=== PATIENT | male | born 1965 | race Caucasian/White ===

== ENCOUNTER 2017-10-28 18:01 | Emergency (ER) | payer BC, OTHER ==
[2017-10-28 18:13] VITALS: BP 125/91
[2017-10-28] MEDS ORDERED: Metoclopramide 10 MG/2 ML SDV IVPUSH ONE (18:24)
[2017-10-28] MEDS ORDERED: HYDROmorphone 1 MG/ML Syringe IVPUSH ONE (18:24)
--- NOTE | 2017-10-28 18:27 | EDM.PDOC ---
<ShahnazRomeo swartz Jermaine - Last Filed: 10/28/17 18:32> ED HPI GENERAL MEDICAL PROBLEM - General Chief Complaint: Abdominal Pain Stated Complaint: HERNIA Time Seen by Provider: 10/28/17 18:24 Source of Information: Reports: Patient, Family (daughter) History Limitations: Reports: No Limitations - History of Present Illness INITIAL COMMENTS - FREE TEXT/NARRATIVE: 52-year-old male presents to the ED with diffuse right skyla-abdominal pain. Patient has multiple abdominal wall hernias as previously identified on CT scan. States right-sided mid and lower abdominal pain started about noon today and has progressed in intensity. Pain is constant with a strong colicky component with an obvious mass involving the abdominal wall on the right side. Patient has been having intermittent process with hernias. He has high-risk surgery because he is on Plavix post 2 stents placed in his heart 6 weeks ago due to coronary disease and is on Plavix. He is and also a long-term insulin- dependent diabetic. Therefore extremely high risk for any major surgery. He states he is nauseated but has not yet vomited. Last meal was around 3:00 when he had an apple. He believes he is still passing some flatus per rectum. Also did move once today. No blood noted Onset: Today Onset Date: 10/28/17 Onset Time: 12:00 Duration: Hour(s): Location: Reports: Abdomen (Right mid and lower hemiabdomen.) Quality: Reports: Ache, Sharp, Stabbing Severity: Severe (Current pain is 8 out of 10.) Improves with: Reports: None Worsens with: Reports: Movement Context: Denies: Activity (In sitting.), Exercise, Lifting, Sick Contact, Trauma , Other Associated Symptoms: Reports: Malaise, Nausea/Vomiting. Denies: Chest Pain, Cough, cough w sputum, Diaphoresis, Fever/Chills, Headaches, Loss of Appetite, Rash, Seizure (Nausea without vomiting), Shortness of Breath, Syncope Treatments AGENCY SERVICE REPRESENTATIVE: Reports: Other (see below) (He took 2 Percocet tablets without any relief of the pain) Lower Abdomen Pain Score (Numeric/FACES): 6 - Related Data Allergies Allergy/AdvReac Type Severity Reaction Status Date / Time No Known Allergies Allergy Verified 09/12/17 23:03 CDT Home Meds: Home Meds Losartan [Cozaar] 25 mg PO BID 04/01/17 [History] Spironolactone [Aldactone] 25 mg PO BID 04/01/17 [History] Insulin Detemir [Levemir Flextouch] 30 units SUBCUT BEDTIME 05/22/17 [History] Carvedilol 12.5 mg PO BIDMEALS 08/17/17 [History] DULoxetine [Cymbalta] 30 mg PO DAILY 08/17/17 [History] Ranolazine [Ranexa] 500 mg PO BID 08/17/17 [History] Isosorbide Mononitrate [Imdur] 60 mg PO DAILY 09/03/17 [History] Nitroglycerin 0.4 mg SL Q5M PRN 09/03/17 [History] Aspirin [Ecotrin] 325 mg PO DAILY 09/09/17 [History] DULoxetine [Cymbalta] 60 mg PO BEDTIME 09/09/17 [History] Omeprazole 40 mg PO ACBREAKFAST 09/09/17 [History] Insulin Aspart [NovoLOG] See Protocol SUBCUT TIDMEALS #0 09/11/17 [Rx] oxyCODONE HCl/Acetaminophen [Percocet 10-325 mg Tablet] 1 each PO Q6HR #20 tablet 09/11/17 [Rx] Past Medical History - Past Health History Medical/Surgical History: Denies Medical/Surgical History HEENT History: Reports: None Cardiovascular History: Reports: Angina, CAD, High Cholesterol, Heart Failure, Hypertension, OR, Other (See Below), Pacemaker Other Cardiovascular History: Valve Problem Respiratory History: Reports: Asthma Other Respiratory History: recently diagnosed with nodules in lungs Gastrointestinal History: Reports: None Genitourinary History: Reports: Chronic Renal Insuffiency (Stage III to the patient's knowledge.) Musculoskeletal History: Reports: Back Pain, Chronic Neurological History: Reports: Neuropathy, Diabetic Other Neuro History: Intracranial hypertension Psychiatric History: Reports: Depression Endocrine/Metabolic History: Reports: Diabetes, Type I Hematologic History: Reports: None Immunologic History: Reports: None Oncologic (Cancer) History: Reports: None Dermatologic History: Reports: None - Infectious Disease History Infectious Disease History: Reports: Chicken Pox, None - Past Surgical History Head Surgeries/Procedures: Reports: None Social & Family History - Family History Family Medical History: Noncontributory - Tobacco Use Smoking Status *Q: Never Smoker Second Hand Smoke Exposure: No - Caffeine Use Caffeine Use: Reports: None - Alcohol Use Days Per Week of Alcohol Use: 0 - Recreational Drug Use Recreational Drug Use: No - Living Situation & Occupation Living situation: Reports: Occupation: Employed ED ROS GENERAL - Review of Systems Review Of Systems: See Below Constitutional: Reports: Malaise, Weakness, Fatigue, Decreased Appetite. Denies : Fever, Chills HEENT: Reports: Glasses Respiratory: Reports: No Symptoms Cardiovascular: Reports: Blood Pressure Problem, Other Endocrine: Reports: Fatigue (Known coronary disease.), High Glucose (Insulin- dependent diabetic for greater than 15 years) GI/Abdominal: Reports: Abdominal Pain (See history of present illness.), Decreased Appetite, Nausea, Other (Multiple abdominal wall hernias.). Denies: Constipation, Diarrhea : Reports: Frequency, Other Musculoskeletal: Reports: Joint Pain (Has arthritis in his back and knees and hips. Sometimes neck pain.) Skin: Reports: No Symptoms Neurological: Reports: Other (Peripheral neuropathy.) Psychiatric: Reports: Anxiety Hematologic/Lymphatic: Reports: No Symptoms Immunologic: Reports: No Symptoms ED EXAM, GI/ABD - Physical Exam Exam: See Below Exam Limited By: No Limitations General Appearance: Alert, Moderate Distress ([place] anxious and in obvious pain. ) Eyes: Bilateral: Normal Appearance (No jaundice.) Throat/Mouth: Normal Inspection, Normal Lips, Normal Oropharynx Head: Atraumatic, Normocephalic Neck: Normal Inspection, Supple, Non-Tender, Full Range of Motion. No: Lymphadenopathy (L), Lymphadenopathy (R) Respiratory/Chest: No Respiratory Distress, Lungs Clear, Normal Breath Sounds Cardiovascular: Regular Rate, Rhythm, No Edema, No Gallop, No Murmur, No Rub. No: Normal Peripheral Pulses GI/Abdominal Exam: Guarding (Right midabdomen and inferior to this along the rectus abdominis muscle. This would be a Spigellian type hernia.), Tender, Abnormal Bowel Sounds (High-pitched continuous bowel sounds particularly over the area in question over the right lower quadrant.) EKG INTERPRETATION EKG Date: 10/28/17 Time: 18:45 Rhythm: Other (Atrial sensed ventricular paced rhythm at 85/m.) Rate (Beats/Min): 85 [place]: RAD-Right [place] Deviation (Borderline) EKG Interpretation Comments: No further analysis attempted. Course - Vital Signs Last Recorded V/S: Last Vital Signs Temp 96.3 F 10/28/17 18:10 Pulse 80 10/28/17 18:10 Resp 14 10/28/17 18:10 BP 125/91 H 10/28/17 18:10 Pulse Ox 99 10/28/17 18:10 - Orders/Labs/Meds Orders: Active Orders 24 hr Category Date Time Status Blood Glucose Check, Bedside [RC] ONETIME Care 10/28/17 18:26 Active EKG Documentation Completion [RC] STAT Care 10/28/17 18:25 Active Abdomen 2V AP Flat Upright [CR] Stat Exams 10/28/17 18:27 Taken Sodium Chloride 0.9% [Normal Saline] 1,000 ml Med 10/28/17 18:30 Active IV ASDIRECTED Medication Orders Sodium Chloride (Normal Saline) 1,000 mls @ 150 mls/hr IV ASDIRECTED ALISHA Last Admin: 10/28/17 18:50 Dose: 150 mls/hr Labs: Laboratory Tests 10/28/17 10/28/17 10/28/17 Range/Units 18:35 18:55 18:55 WBC 5.38 (4.23-9.07) K/mm3 RBC 4.86 (4.63-6.08) M/mm3 Hgb 15.5 (13.7-17.5) gm/L Hct 44.1 (40.1-51.0) % MCV 90.7 (79.0-92.2) fl MCH 31.9 (25.7-32.2) pg MCHC 35.1 (32.2-35.5) g/dl RDW Std Deviation 40.7 (35.1-43.9) fL Plt Count 200 (163-337) K/mm3 MPV 9.2 L (9.4-12.3) fl Neutrophils % (Manual) 53 (40-60) % Band Neutrophils % 0 (0-10) % Lymphocytes % (Manual) 40 (20-40) % Atypical Lymphs % 0 % Monocytes % (Manual) 7 (2-10) % Eosinophils % (Manual) 0 L (0.8-7.0) % Basophils % (Manual) 0 L (0.2-1.2) Platelet Estimate Adequate RBC Morph Comment Normal PT 10.5 (8.0-13.0) SECONDS INR 0.97 Sodium (136-145) mEq/L Potassium (3.5-5.1) mEq/L Chloride (98-107) mEq/L Carbon Dioxide (21-32) mEq/L Anion Gap (5-15) BUN (7-18) mg/dL Creatinine (0.7-1.3) mg/dL Est Cr Clr Drug Dosing mL/min Estimated GFR (MDRD) (>60) mL/min BUN/Creatinine Ratio (14-18) Glucose (74-106) mg/dL POC Glucose 260 H (70-105) mg/dL Lactic Acid (0.4-2.0) mmol/L Calcium (8.5-10.1) mg/dL Magnesium (1.8-2.4) mg/dl Total Bilirubin (0.2-1.0) mg/dL AST (15-37) U/L ALT (16-63) U/L Alkaline Phosphatase (46-116) U/L C-Reactive Protein (<1.0) mg/dL Total Protein (6.4-8.2) g/dl Albumin (3.4-5.0) g/dl Globulin gm/dL Albumin/Globulin Ratio (1-2) 10/28/17 10/28/17 Range/Units 18:55 18:55 WBC (4.23-9.07) K/mm3 RBC (4.63-6.08) M/mm3 Hgb (13.7-17.5) gm/L Hct (40.1-51.0) % MCV (79.0-92.2) fl MCH (25.7-32.2) pg MCHC (32.2-35.5) g/dl RDW Std Deviation (35.1-43.9) fL Plt Count (163-337) K/mm3 MPV (9.4-12.3) fl Neutrophils % (Manual) (40-60) % Band Neutrophils % (0-10) % Lymphocytes % (Manual) (20-40) % Atypical Lymphs % % Monocytes % (Manual) (2-10) % Eosinophils % (Manual) (0.8-7.0) % Basophils % (Manual) (0.2-1.2) Platelet Estimate RBC Morph Comment PT (8.0-13.0) SECONDS INR Sodium 140 (136-145) mEq/L Potassium 4.5 (3.5-5.1) mEq/L Chloride 104 (98-107) mEq/L Carbon Dioxide 26 (21-32) mEq/L Anion Gap 14.5 (5-15) BUN 15 (7-18) mg/dL Creatinine 1.1 (0.7-1.3) mg/dL Est Cr Clr Drug Dosing 91.33 mL/min Estimated GFR (MDRD) > 60 (>60) mL/min BUN/Creatinine Ratio 13.6 L (14-18) Glucose 236 H (74-106) mg/dL POC Glucose (70-105) mg/dL Lactic Acid 1.2 (0.4-2.0) mmol/L Calcium 8.8 (8.5-10.1) mg/dL Magnesium 2.1 (1.8-2.4) mg/dl Total Bilirubin 0.5 (0.2-1.0) mg/dL AST 42 H (15-37) U/L ALT 50 (16-63) U/L Alkaline Phosphatase 84 (46-116) U/L C-Reactive Protein < 0.2 (<1.0) mg/dL Total Protein 7.0 (6.4-8.2) g/dl Albumin 3.9 (3.4-5.0) g/dl Globulin 3.1 gm/dL Albumin/Globulin Ratio 1.3 (1-2) Meds: Medications Generic Name Dose Route Start Last Admin Trade Name Freq PRN Reason Stop Dose Admin Sodium Chloride 1,000 mls @ 150 mls/hr 10/28/17 18:30 10/28/17 18:50 Normal Saline IV 150 mls/hr ASDIRECTED ALISHA Administration Discontinued Medications Generic Name Dose Route Start Last Admin Trade Name Freq PRN Reason Stop Dose Admin Hydromorphone HCl 1 mg 10/28/17 18:24 10/28/17 18:40 Dilaudid IVPUSH 10/28/17 18:25 1 mg ONETIME ONE Administration Metoclopramide HCl 10 mg 10/28/17 18:24 10/28/17 18:41 Reglan IVPUSH 10/28/17 18:25 10 mg ONETIME ONE Administration Midazolam HCl 1 mg 10/28/17 19:24 10/28/17 19:33 Versed 1 Mg/Ml IVPUSH 10/28/17 19:25 1 mg ONETIME ONE Administration - Radiology Interpretation Free Text/Narrative:: 52-year-old male presents to the ED with right mid and lower abdominal pain. He states this started about noon today. He is known to have multiple abdominal wall hernias. Be seen in intensity in the right hemiabdomen with well localized bowel sounds which are continuous in this area suggesting obstruction. Area is firm to palpation and measures 9 cm in length and 7 cm in width. Patient is extremely high risk for any surgical procedure due to being on Plavix for the last 6 weeks after having 2 stents placed in his coronary arteries. He is also a insulin-dependent diabetic for greater than 20 years and therefore healing of the wound would be difficult. He also has significant chronic renal insufficiency. Departure - Departure Disposition: Home, Self-Care 01 Clinical Impression: Hernia of anterior abdominal wall Abdominal pain Qualifiers: Abdominal location: left upper quadrant Qualified Code(s): R10.12 - Left upper quadrant pain - Discharge Information Instructions: Hernia, Adult, Abdominal Pain, Adult, [id number] Referrals: Samir Dhillon MD [Primary Care Provider] - Forms: ED Department Discharge Additional Instructions: Use abdominal support strap provided for support and to keep pressure on your areas of multiple hernias. Avoid all lifting for now. Clear liquids and very careful bland diet as tolerated. Follow-up with your regular medical provider in 2-3 days for recheck. Call tomorrow morning for appointment. Return to ED if symptoms worsening in any way. <Herson Barragan - Last Filed: 10/28/17 20:31> Course - Re-Assessments/Exams Free Text/Narrative Re-Assessment/Exam: 10/28/17 19:56. Have assumed care from Dr. Mosquera after change of shift. I agree with his history and exam as documented. He was given Dilaudid 1 mg IV and also Reglan IV prior to my arrival. That Was helping him, and he was quite relaxed with minimal discomfort when I first reevaluated him about 45 minutes ago. As documented he has 3 areas of herniation left upper quadrant right upper quadrant and right lower abdomen. His pain was primarily in the right lower abdominal area just above the lower hernia. I was able to reduce that with gentle pressure and that has remained reduced. I now did work on the upper hernia and the bulge is much less prominent, almost completely reduced. Labs including white blood count and C-reactive protein have come back normal. We have also given IV Versed and have him in Trendelenburg at this point in time. His nausea is gone, no vomiting while here in the ED or prior to arrival. He had been working and living up in [facility] so his prior medical care was primarily up there. He has recently moved to [facility] so his primary provider now is associated with the [facility] [place] [facility]. 10/28/17 20:25. Patient is resting very comfortably. Lower right hernia remains reduced. Upper right still bulging mildly but not near as prominent as before. He is and has been totally pain-free for about the last hour. Our charge nurse did find an abdominal support strap that we have applied that covers all 3 areas of herniation. Discharge instructions as documented. Departure - Departure Time of Disposition: 20:22 Condition: Fair
[2017-10-28] MEDS ORDERED: Sodium Chloride 0.9% 1,000 ML IV SCH (18:30)
[2017-10-28] MEDS ORDERED: Midazolam 1 MG/ML 2 ML SDV IVPUSH ONE (19:24)
--- NOTE | 2017-10-29 07:28 | CR ---
Abdomen: Supine and upright views of the abdomen were obtained. Scattered stool and gas is noted within the colon. This appears within normal limits. Surgical clips are seen from prior cholecystectomy. No free air is identified. Bony structures appear within normal limits. Minimal arterial calcification is seen within the pelvis and within the upper extremities. Phlebolith is noted within the pelvis. Mild joint space narrowing is seen within both hips. Impression: 1. Incidental findings. If further evaluation for abdominal wall hernia is needed, noncontrast CT would be helpful. Diagnostic code #2
== END 2017-10-28 20:37 | disposition home or self-care (01) ==
LOC: JD.ED 18:01
DX: K46.9 Unspecified abdominal hernia without obstruction or gangrene (principal); E78.00 Pure hypercholesterolemia, unspecified; I12.9 Hypertensive chronic kidney disease with stage 1 through stage 4 chronic kidney disease, or unspecified chronic kidney disease; N18.3 Chronic kidney disease, stage 3 (moderate); E10.22 Type 1 diabetes mellitus with diabetic chronic kidney disease; E11.40 Type 2 diabetes mellitus with diabetic neuropathy, unspecified; Z79.4 Long term (current) use of insulin; Z79.82 Long term (current) use of aspirin; Z79.899 Other long term (current) drug therapy
CPT/HCPCS: 36415; 74020; 80053; 82962; 83605; 83735; 85025; 85610; 86140; 93005; 96361; 96374; 96375; 99284; J1170; J2250; J2765; J7040

== ENCOUNTER 2017-11-10 13:41 | Emergency (ER) | payer MEDICAID, OTHER ==
[2017-11-10] MEDS ORDERED: Ondansetron 4 MG/2 ML SDV IVPUSH ONE (15:35)
[2017-11-10] MEDS ORDERED: Ketorolac 30 MG/ML SDV IVPUSH STA (15:36)
[2017-11-10] MEDS ORDERED: Sodium Chloride 0.9% 1,000 ML IV SCH (15:45)
--- NOTE | 2017-11-10 18:41 | EDM.PDOC ---
ED HPI GENERAL MEDICAL PROBLEM - General Chief Complaint: Abdominal Pain Stated Complaint: HERNIA PAIN Time Seen by Provider: 11/10/17 14:59 Source of Information: Reports: Patient, Family () History Limitations: Reports: No Limitations - History of Present Illness INITIAL COMMENTS - FREE TEXT/NARRATIVE: The patient states that he has had watery diarrhea since 11/08/2017. Today he drank a Coca-Cola, which she promptly vomited. No recent fever. No urinary symptoms. No recent spoiled food. No ill contacts. No recent travel. No recent antibiotics. The patient also reports right pelvic pain, indicating his right inguinal area, that has been going on for years. He states that he has multiple hernias, including bilateral inguinal hernias as diagnosed by ultrasound, and that he has been seen by a surgeon in the past who refused to perform surgery due to the patient's history of coronary artery disease and CHF. He states that his pain is achy and sharp. It is constant. He is more comfortable if he lies supine with his hips flexed. He also states that he gets relief with Percocet. He states that he has taken 3 tablets over the past 5 hours. The patient's PCP is Dr. Samir Dhillon. His Neurologist is Dr. Calzada. His Manager Banquet is Dr. Juarez. Abdomen Pain Score (Numeric/FACES): 7 - Related Data Allergies Allergy/AdvReac Type Severity Reaction Status Date / Time No Known Allergies Allergy Verified 11/10/17 18:27 Home Meds: Home Meds Losartan [Cozaar] 25 mg PO BID 04/01/17 [History] Spironolactone [Aldactone] 25 mg PO BID 04/01/17 [History] Insulin Detemir [Levemir Flextouch] 30 units SUBCUT BEDTIME 05/22/17 [History] Carvedilol 12.5 mg PO BIDMEALS 08/17/17 [History] Ranolazine [Ranexa] 500 mg PO BID 08/17/17 [History] Isosorbide Mononitrate [Imdur] 60 mg PO DAILY 09/03/17 [History] Aspirin [Ecotrin] 81 mg PO DAILY 09/09/17 [History] DULoxetine [Cymbalta] 60 mg PO BID 09/09/17 [History] Omeprazole 40 mg PO ACBREAKFAST 09/09/17 [History] Insulin Aspart [NovoLOG] See Protocol SUBCUT TIDMEALS #0 09/11/17 [Rx] oxyCODONE HCl/Acetaminophen [Percocet 10-325 mg Tablet] 1 each PO Q6HR #20 tablet 09/11/17 [Rx] Ondansetron [Zofran ODT] 4 mg PO Q8H PRN #10 tab.dis 11/10/17 [Rx] Past Medical History Cardiovascular History: Reports: CAD, Heart Failure (due to rheumatic heart disease?), High Cholesterol, Hypertension Respiratory History: Reports: Other (See Below) (Pulmonary nodules) Neurological History: Reports: Neuropathy, Diabetic, Other (See Below) ( Hydrocephalus) Psychiatric History: Reports: Anxiety, Depression Endocrine/Metabolic History: Reports: Diabetes, Type I - Infectious Disease History Infectious Disease History: Reports: Chicken Pox - Past Surgical History HEENT Surgical History: Reports: Oral Surgery ([place] teeth extraction) Cardiovascular Surgical History: Reports: AICD, Coronary Artery Stent (x 2), Other (See Below) (Coronary angiogram x 2) GI Surgical History: Reports: Cholecystectomy Social & Family History - Family History Family Medical History: Noncontributory - Tobacco Use Smoking Status *Q: Never Smoker Second Hand Smoke Exposure: No - Caffeine Use Caffeine Use: Reports: Soda - Alcohol Use Alcohol Use History: Yes Alcohol Use Frequency: Rarely - Recreational Drug Use Recreational Drug Use: No - Living Situation & Occupation Living situation: Reports: , with Spouse, with Family (2 kids) Occupation: Unemployed ED ROS GENERAL - Review of Systems Review Of Systems: See Below Constitutional: Reports: No Symptoms HEENT: Reports: No Symptoms Respiratory: Reports: No Symptoms Cardiovascular: Reports: Chest Pain Endocrine: Reports: No Symptoms GI/Abdominal: Reports: No Symptoms : Reports: No Symptoms Musculoskeletal: Reports: No Symptoms Skin: Reports: No Symptoms Neurological: Reports: Dizziness, Other (Head pressure) Psychiatric: Reports: No Symptoms Hematologic/Lymphatic: Reports: No Symptoms Immunologic: Reports: No Symptoms ED EXAM, GI/ABD - Physical Exam Exam: See Below Exam Limited By: No Limitations General Appearance: Alert, WD/WN, No Apparent Distress Eyes: Bilateral: Normal Appearance, EOMI Ears: Normal External Exam, Hearing Grossly Normal Nose: Normal Inspection, No Blood Throat/Mouth: Normal Inspection, Normal Lips, Normal Voice, No Airway Compromise Head: Atraumatic, Normocephalic Neck: Normal Inspection, Full Range of Motion Respiratory/Chest: No Respiratory Distress, Lungs Clear, Normal Breath Sounds, No Accessory Muscle Use Cardiovascular: Normal Peripheral Pulses, Regular Rate, Rhythm, No Gallop, No JVD, No Murmur, No Rub GI/Abdominal Exam: Normal Bowel Sounds, Soft, No Organomegaly, No Distention, No Abnormal Bruit, No Mass, Tender (Slight in epigastric region only. Nontender elsewhere.), Hernia (Bilateral mid-abdominal hernias (versus lipomas). Bilateral inguinal hernias without suggestion of incarceration.) (Male) Exam: Deferred Rectal (Males) Exam: Deferred Back Exam: Normal Inspection, Full Range of Motion, NT Extremities: Normal Inspection, Normal Range of Motion, No Pedal Edema, Normal Capillary Refill Neurological: Alert, Oriented, Normal Cognition, No Motor/Sensory Deficits Psychiatric: Normal Affect Skin Exam: Warm, Dry, Intact, Normal Color, No Rash Course - Vital Signs Last Recorded V/S: Last Vital Signs Temp 35.8 C 11/10/17 14:15 Pulse 90 11/10/17 18:58 Resp 18 11/10/17 18:58 BP 129/83 11/10/17 18:58 Pulse Ox 97 11/10/17 18:58 - Orders/Labs/Meds Labs: Laboratory Tests 11/10/17 11/10/17 11/10/17 Range/Units 16:15 16:25 16:25 WBC 5.28 (4.23-9.07) K/mm3 RBC 5.00 (4.63-6.08) M/mm3 Hgb 15.8 (13.7-17.5) gm/L Hct 43.5 (40.1-51.0) % MCV 87.0 (79.0-92.2) fl MCH 31.6 (25.7-32.2) pg MCHC 36.3 H (32.2-35.5) g/dl RDW Std Deviation 39.0 (35.1-43.9) fL Plt Count 220 (163-337) K/mm3 MPV 9.4 (9.4-12.3) fl Neutrophils % (Manual) 59 (40-60) % Band Neutrophils % 0 (0-10) % Lymphocytes % (Manual) 38 (20-40) % Atypical Lymphs % 0 % Monocytes % (Manual) 3 (2-10) % Eosinophils % (Manual) 0 L (0.8-7.0) % Basophils % (Manual) 0 L (0.2-1.2) Platelet Estimate Adequate RBC Morph Comment Normal Sodium 142 (136-145) mEq/L Potassium 3.8 (3.5-5.1) mEq/L Chloride 106 (98-107) mEq/L Carbon Dioxide 28 (21-32) mEq/L Anion Gap 11.8 (5-15) BUN 12 (7-18) mg/dL Creatinine 1.1 (0.7-1.3) mg/dL Est Cr Clr Drug Dosing 88.89 mL/min Estimated GFR (MDRD) > 60 (>60) mL/min BUN/Creatinine Ratio 10.9 L (14-18) Glucose 89 (74-106) mg/dL Calcium 9.5 (8.5-10.1) mg/dL Total Bilirubin 1.1 H (0.2-1.0) mg/dL AST 37 (15-37) U/L ALT 60 (16-63) U/L Alkaline Phosphatase 86 (46-116) U/L Total Protein 7.3 (6.4-8.2) g/dl Albumin 4.3 (3.4-5.0) g/dl Globulin 3.0 gm/dL Albumin/Globulin Ratio 1.4 (1-2) Lipase 44 L (73-393) U/L Urine Color Dark yellow (Yellow) Urine Appearance Clear (Clear) Urine pH 6.5 (5.0-8.0) Ur Specific [place] > or = 1.030 (1.005-1.030) Urine Protein 1+ H (Negative) Urine Glucose (UA) 1+ H (Negative) Urine Ketones Trace H (Negative) Urine Occult Blood Negative (Negative) Urine Nitrite Negative (Negative) Urine Bilirubin 1+ H (Negative) Urine Urobilinogen 0.2 (0.2-1.0) Ur Leukocyte Esterase Negative (Negative) Urine RBC 0-5 (0-5) /hpf Urine WBC 0-5 (0-5) /hpf Ur Epithelial Cells 0-5 (0-5) /hpf Amorphous Sediment Moderate H (NOT SEEN) /hpf Urine Bacteria Few (FEW) /hpf Urine Mucus Few (FEW) /hpf Meds: Medications Discontinued Medications Generic Name Dose Route Start Last Admin Trade Name Tristonq PRN Reason Stop Dose Admin Sodium Chloride 1,000 mls @ 150 mls/hr 11/10/17 15:45 11/10/17 15:58 Normal Saline IV 150 mls/hr ASDIRECTED ALISHA Administration Ketorolac Tromethamine 30 mg 11/10/17 15:36 11/10/17 16:01 Toradol IVPUSH 11/10/17 15:37 30 mg ONETIME STA Administration Ondansetron HCl 4 mg 11/10/17 15:35 11/10/17 15:59 Zofran IVPUSH 11/10/17 15:36 4 mg ONETIME ONE Administration - Re-Assessments/Exams Free Text/Narrative Re-Assessment/Exam: 11/10/17 18:33 Test results discussed with the patient and his . The patient states that he is feeling much better, following IV fluid, Zofran, and Toradol. Clinically, the patient has gastroenteritis, but does not appear to have suffered any consequences, such as electrolyte abnormalities or renal insufficiency. He does not have pancreatitis or a UTI. I will discharge patient home with a prescription for Zofran. Clinically, the patient has a reducible right inguinal hernia. A CT scan of the abdomen and pelvis was offered, but declined. I'm recommending that he follow- up with a general surgeon to discuss surgical repair of this, however, the patient indicates that he has been told in the past that his cardiac illness precludes this elective procedure. Departure - Departure Time of Disposition: 18:35 Disposition: Home, Self-Care 01 Condition: Fair Clinical Impression: Viral gastroenteritis, Right inguinal hernia - Discharge Information Prescriptions: Ondansetron [Zofran ODT] 4 mg PO Q8H PRN #10 tab.dis PRN Reason: Nausea/Vomiting Instructions: Viral Gastroenteritis, Adult, [id number] Referrals: Samir Dhillon MD [Primary Care Provider] - Forms: ED Department Discharge Additional Instructions: You were seen in the emergency room for watery diarrhea, diarrhea, and right groin pain. Workup in the ER included blood work and a urinalysis. CT scan of your abdomen and pelvis was offered, but declined. Your entire workup was unremarkable. You do not have electrolyte abnormalities or damage to your kidneys. You do not urinary tract infection. Your vomiting and diarrhea are MOST LIKELY due to viral gastroenteritis. As discussed, there is no treatment for viral gastroenteritis - it will have to run its course, however, your symptoms can be treated. Dissolve one tablet of the anti-nausea medicine Zofran on your tongue up to every 8 hours, as needed for nausea/vomiting. Stay well hydrated. Gatorade or Powerade are best. We DO NOT recommend you drink sodas, like Coke, Cruz Coke, or even Helene Sharon. If your diarrhea returns, take 2 tablets of the anti-diarrhea medicine Imodium ( loperamide). You may repeat one tablet after each loose bowel movement, to a maximum of 8 tablets within a 24-hour period. Your right groin pain is MOST LIKELY due to a non-incarcerated hernia. The only treatment is surgical, however, as discussed, a surgeon may be reluctant to perform this surgery, given your heart issues. Follow-up with your PCP, Dr. Dhillon in this regard. If any other problems, please do not hesitate to return to the ER.
[2017-11-10 18:59] VITALS: BP 129/83
== END 2017-11-10 18:50 | disposition home or self-care (01) ==
LOC: JD.ED 13:41
DX: A08.4 Viral intestinal infection, unspecified (principal); K40.90 Unilateral inguinal hernia, without obstruction or gangrene, not specified as recurrent; E10.40 Type 1 diabetes mellitus with diabetic neuropathy, unspecified; Z79.4 Long term (current) use of insulin; Z79.82 Long term (current) use of aspirin; Z90.49 Acquired absence of other specified parts of digestive tract
CPT/HCPCS: 36415; 80053; 81001; 83690; 85025; 96361; 96374; 96375; 99284; J1885; J2405; J7040